=== PATIENT | female | born 1995 | race American Indian/Alaskan Native ===

== ENCOUNTER 2019-09-13 22:09 | Emergency (ER) | payer OTHER ==
[~2019-09-13] VITALS: Ht 172.7 cm; Wt 78.5 kg
--- OUTSIDE RECORDS SUMMARY | ~2019-09-13 | XMS | Clinical Summary ---
Demographics + + + | Address | [address] | | | [place] [address] | + + + | Home Phone | | + + + | Preferred Language | Unknown | + + + | Marital Status | Single | + + + | Latter-Day Affiliation | 1013 | + + + | Race | Unknown | + + + | Ethnic Group | Unknown | + + + Author + + + | Author | [facility] (Historical as of | | | 05-17-19) | + + + | Organization | [facility] (Historical as of | | | 05-17-19) | + + + | Address | Unknown | + + + | Phone | Unavailable | + + + Support + + +---------+ + | Name | Relationship | Address | Phone | + + +---------+ + | Charity Bradley | ECON | Unknown | | + + +---------+ + | Renée Perkins | ECON | Unknown | | + + +---------+ + Care Team Providers + +------+ + | Care Asp Net Software Developer Name | Role | Phone | + +------+ + | Jose Cruz Sánchez | PP | | + +------+ + Allergies No Known Allergies Current Medications + + + +---------+------+------+-------+ | Prescription | Sig. | Disp. | Refills | Star | End | Statu | | | | | | t | Date | s | | | | | | Date | | | + + + +---------+------+------+-------+ | MV-Min-Fe | Take by mouth. | | | | | Activ | | Fum-FA-DHA | | | | | | e | | ( 1 PO) | | | | | | | + + + +---------+------+------+-------+ | Breast Pump | Dispense and provide | 1 each | 0 | 07/2 | | Activ | | (medical representative) | instruction as | | | 2/20 | | e | | | needed. | | | 14 | | | + + + +---------+------+------+-------+ | bisacodyl | Take 2 tablets by | 30 | 0 | 07/2 | | Activ | | (DULCOLAX) 5 MG EC | mouth daily as | tablet | | 4/20 | | e | | tablet | needed for | | | 14 | | | | | Constipation. Take | | | | | | | | with 8 oz. water. | | | | | | + + + +---------+------+------+-------+ | ibuprofen (MOTRIN) | Take 1 tablet by | 30 | 0 | 07/2 | | Activ | | 800 MG tablet | mouth every 8 | tablet | | 4/20 | | e | | | (eight) hours as | | | 14 | | | | | needed for Pain. | | | | | | + + + +---------+------+------+-------+ | labetalol | Take 1 tablet by | 30 | 0 | 07/2 | | Activ | | (NORMODYNE) 100 MG | mouth 3 (three) | tablet | | 4/20 | | e | | tablet | times daily. | | | 14 | | | + + + +---------+------+------+-------+ Active Problems No known active problems Social History + +-------+ +--------+------+ | Tobacco Use | Types | Packs/Day | Years | Date | | | | | Used | | + +-------+ +--------+------+ | Never Smoker | | | | | + +-------+ +--------+------+ + + +---------+ + | Alcohol Use | Drinks/We | oz/Week | Comments | | | ek | | | + + +---------+ + | No | | | | + + +---------+ + + + + | Sex Assigned at | Date Recorded | | | | + + + | Not on file | | + + + Last Filed Vital Signs + + + + | Vital Sign | Reading | Time Taken | + + + + | Blood Pressure | 147/93 | 04/23/2014 1:50 PM PDT | + + + + | Pulse | 67 | 04/23/2014 1:50 PM PDT | + + + + | Temperature | 36.9 C (98.4 F) | 04/23/2014 1:50 PM PDT | + + + + | Respiratory Rate | 16 | 04/23/2014 1:50 PM PDT | + + + + | Oxygen Saturation | 99% | 04/20/2014 8:07 PM PDT | + + + + | Inhaled Oxygen | - | - | | Concentration | | | + + + + | Weight | 82.5 kg (181 lb 14.1 | 04/21/2014 9:51 AM PDT | | | oz) | | + + + + | Height | 170.2 cm (5' 7.01") | 04/20/2014 3:09 PM PDT | + + + + | Body Mass Index | 28.48 | 04/21/2014 9:51 AM PDT | + + + + Plan of Treatment Not on file Results Not on filefrom Last 3 Months Insurance + +--------+ +------+-------+ + | Payer | Benefi | Subscriber | Type | Phone | Address | | | t Plan | ID | | | | | | / | | | | | | | Group | | | | | + +--------+ +------+-------+ + | MEDICAID | [employer] | [id number] | | | [address] | | | N | | | | [place] | | | [place] | | | | [phone] | | | MAGAZINE DESIGNER | | | | | + +--------+ +------+-------+ + + +--------+ +--------+ + + | Guarantor Name | Accoun | Relation to | Date | Phone | Billing Address | | | t Type | Patient | of | | | | | | | | | | + +--------+ +--------+ + + | KEITH OLMOS | Person | Self [birth year] | Home: | [address] | | | [place] | | 1994 | [phone] | [place] [address] | | | [place] | | | [phone] | | + +--------+ +--------+ + +
--- OUTSIDE RECORDS SUMMARY | ~2019-09-13 | XMS | Clinical Summary ---
Demographics + + + | Address | [address] | | | [place] [address] | + + + | Home Phone | | + + + | Preferred Language | Unknown | + + + | Marital Status | Single | + + + | Rastafarian Affiliation | 1013 | + + + | Race | Unknown | + + + | Ethnic Group | Unknown | + + + Author + + + | Author | [facility] (Historical as of | | | 05-17-19) | + + + | Organization | [facility] (Historical as of | | | 05-17-19) [...] Team Providers + +------+ + | Care Personal Banking Advisor Name | Role | Phone | + [...] 07/2 | | Activ | | (medical affairs leader) | instruction as | | | 2/20 [...] +------+-------+ + | MEDICAID | [employer] | [id number] | | | [address] | | | N | | | | [place] | | | [place] | | | | [phone] | | | OPERATING MANAGER | | | | | + +--------+ [...] | Self | [birth year] | Home: | [address] | | | [place] | | 1994 | [phone] | [place] [address] | | | [place] | | | [phone] | | + +--------+ +--------+ + +
--- OUTSIDE RECORDS SUMMARY | ~2019-09-13 | XMS | Encounter Summary ---
Demographics + + + | Address | [address] | | | [place] [address] | + + + | Home Phone | | + + + | Preferred Language | Unknown | + + + | Marital Status | Single | + + + | Rastafarian Affiliation | [id number] | + + + | Race | Unknown | + + + | Ethnic Group | Unknown | + + + Author + + + | Author | [facility] | | | and [place] | + + + | Organization | [facility] | | | and [place] | + + + | Address | Unknown | + + + | Phone | Unavailable | + + + Support + + +---------+ + | Name | Relationship | Address | Phone | + + +---------+ + | Charity Bradley | ECON | Unknown | | + + +---------+ + Care Team Providers + +------+ + | Care Awnings Mechanic Name | Role | Phone | + +------+ + PCP | Unavailable | + +------+ + Encounter Details +--------+ + + + + | Date | Type | Department | Care Team | Description | +--------+ + + + + | 04/20/ | Hospital | [facility] | Azael Flores | | | 2013 - | Encounter | [facility] LABOR | MD ADA [address] | | | | | [address] | [place], [place] | | | 04/23/ | | [place] [place] | [address] | | | 2014 | | [place], [place] | [phone] | | | | | [address] | | | | | | [phone] | | | +--------+ + + + + Social History + +-------+ +--------+------+ | Tobacco Use | Types | Packs/Day | Years | Date | | | | | Used | | + +-------+ +--------+------+ | Never Assessed | | | | | + +-------+ +--------+------+ + + + | Sex Assigned at | Date Recorded | | | | + + + | Not on file | | + + + + + + + | Job Start Date | Occupation | Industry | + + + + | Not on file | Not on file | Not on file | + + + + + + + + | Travel History | Travel Start | Travel End | + + + + + + | No recent travel history available. | + + documented as of this encounter Discharge Summaries Azael Flores MD, MD - 04/23/2014 2:11 PM PDT Discharge Summaries by Azael Flores MD at 04/23/14 141 Author: Azael Flores MD Service: (none) Author Type: Physician Filed: 04/23/14 1427 Date of Service: 04/23/141410 Status: Signed Cloud Systems Architect: Azael Flores MD (Physician) [facility]: Obstetrics & Gynecology Discharge Summary Date of Admission: 04/20/2014 Date of Discharge: 04/23/2014 Discharge Provider: AZAEL FLORES MD Treatment Team: Admitting Provider: Azael Flores MD Discharge Diagnoses: Active Problems: * No active hospital problems. * Resolved Problems: * No resolved hospital problems. * Final Diagnoses: at 34 weeks 6 days Delivered Toxemia hypertensio n Procedures EFM Epidural anesthesia VAGINAL DELIVERY SINE OB COMPLICATIONS Significant Diagnostic Studies: Labs: ob labs , PIH PAnel BRIEF HISTORY OF PRESENTATION: Sandra Duvall is a 18 y.o. female who WAS TRANSPORTED VIA HELICOPTER FROM [facility] WITH DIAGNOSIS OF TOXEMIA , PROM AND PREMATURE LABOR , LABOR PROCEEDED TO COMPLETE DI LATATION AND VAGINAL DELIVERY . HOSPITAL COURSE: BENIGN UNEVENTFUL BOTH MOTHER AND DELIVERY DOING WELL , INFANT IS WELL IN NICU , TEODORA ASTFEEDING IS ESTABLISHED WITH THE ASSISTANCE OF AN ELECTRIC BREAST PUMP . History reviewed. No pertinent past medical history. History reviewed. No pertinent past surgical history. No Known Allergies Prescriptions prior to admission Medication Sig Dispense Refill MV-Min-Fe Fum-FA-DHA ( 1 PO) Take by mouth. DISCHARGE EXAM Vital Signs: BP 147/93 | Pulse 67 | Temp 98.4 F (36.9 C) (Oral) | Resp 16 | Ht 1.702 m (5' 7.01") | Wt 82.5 kg (181 lb 14.1 oz) | BMI 28.48 kg/m2 | SpO2 99% | ? Yes Temp: [98 F (36.7 C)-98.4 F (36.9 C)] 98.4 F (36.9 C) (04/23 1350) BP: (133-162)/(90-114) 147/93 mmHg (04/23 1350) Heart Rate: [67-82] 67 (04/23 1350) Resp: [16-18] 16 (04/23 1350) Physical Exam Nursing note and vitals reviewed. Constitutional: She appears well-developed and well-nourished. HENT: Head: Normocephalic and atraumatic. Eyes: EOM are normal. Pupils are equal, round, and reactive to light. Neck: Normal range of motion. Neck supple. Cardiovascular: Normal rate, regular rhythm and normal heart sounds. Pulmonary/Chest: Effort normal and breath sounds normal. Abdominal: Soft. Bowel sounds are normal. Genitourinary: Uterus normal. Musculoskeletal: Normal range of motion. Neurological: She is alert. She has normal reflexes. Skin: Skin is warm. Psychiatric: She has a normal mood and affect. Her behavior is normal. Judgment and thought content normal. DATA CBC: Lab Results Component Value Date WBC 11.2* 04/22/2014 RBC 3.25* 04/22/2014 HGB 10.0* 04/22/2014 HCT 29.9* 04/22/2014 MCV 92.2 04/22/2014 MCH 31.0 04/22/2014 MCHC 33.6 04/22/2014 RDW 44.2 04/22/2014 PLT 150 04/22/2014 MPV 11.2 04/22/2014 DIFFTYPE MANUAL 04/22/2014 WBC: Lab Results Component Value Date WBC 11.2* 04/22/2014 NEUTABSMAN 6.2 04/22/2014 NEUTROMAN 55 04/22/2014 LYMPHOABS 3.9 04/22/2014 LYMPHOMAN 35 04/22/2014 MONOABSMAN 0.8 04/22/2014 MONOMAN 7 04/22/2014 EOSINOABS 0.2 04/22/2014 EOSINOMAN 2 04/22/2014 BANDSPCT 1 04/22/2014 Platelets: Lab Results Component Value Date PLT 150 04/22/2014 PLAN NO ACTIVE PROBLEMS , TOXEMIA IN RESOLUTION. Disposition: Home Condition: Good Code Status: Full Code CONTINUE TAKING PNV AND LABETALOL PRESCRIBED Follow up: [facility] Schedule an appointment as soon as possible for a visit in 4 weeks Medication List As of 04/23/2014 2:11 PM START taking these medications bisacodyl 5 MG EC tablet QTY: 30 tablet Refills: 0 Commonly known as: DULCOLAX Take 2 tablets by mouth daily as needed for Constipation. Take with 8 oz. water. Breast Pump (medical coder) QTY: 1 each Refills: 0 Doctor's comments: Patient needs a double electric breast pump to help establish and maint ain milk supply for a premature in NICU and for engorgement. Dispense and provide instruction as needed. ibuprofen 800 MG tablet QTY: 30 tablet Refills: 0 Commonly known as: MOTRIN Take 1 tablet by mouth every 8 (eight) hours as needed for Pain. Where to get your medications These are the prescriptions that you need to filler picker. You may get these medications from any pharmacy. bisacodyl 5 MG EC tablet Breast Pump (medical coder) ibuprofen 800 MG tablet Discharge took 23 minutes, to include final examination, discussion of admission, and prep aration of prescriptions, instructions for on-going care, follow-up and documentation of dis charge summary. AZAEL FLORES MD 04/23/2014 documentrosa gale in this encounter Progress Notes Alex Guido MD - 04/22/2014 5:27 PM PDTFormatting of this note might be diffe rent from the original. Progress Notes by Alex Guido MD at 04/22/141726 Author: Alex Guido MD Service: Obstetrics/Gynecology Author Type: Physicia n Filed: 04/22/14 8945 Date of Service: 04/22/141726 Status: Signed Cloud Systems Architect: Alex Guido MD (Physician) [facility]: Obstetrics & Gynecology Progress Note Day: 2 SUBJECTIVE The patient feels well. Pain is well controlled with current medications. The patient is am bulating well. The patient is tolerating a normal diet. Urinary output is adequate. Flatus has been passed. The baby is in the NICU for prematurity. Patient is breast and bottle feed ing. Scheduled Medications docusate calcium 240 mg Oral Daily [] ibuprofen 600 mg Oral Q6H SARAH labetalol 20 mg Intravenous Once labetalol 100 mg Oral Q12H SARAH lactated ringers 500 mL Intravenous Once sodium chloride 0.9 % 10 mL Intravenous Q8H Continuous Infusions [] fentaNYL 3 mcg/mL-BUpivacaine 0.1% lactated ringers Stopped (04/21/142139) lactated ringers [] magnesium sulfate in LR 40g/1000mL Stopped (04/21/142139) PRN Medications acetaminophen, ntzdxduaac-uxbrref-sqgc vera, calcium gluconate, dibucaine, diphenhydrAMINE, [] diphenhydrAMINE, [] ephedrine, fentaNYL, fentaNYL, ibuprofen, lactated rin gers, lactated ringers, lactated ringers, lanolin, naloxone, oxyCODONE, oxyCODONE, simethico ne, sodium chloride, witch emily-glycerin, zolpidem OBJECTIVE Vital Signs: BP 134/96 | Pulse 67 | Temp 98.1 F (36.7 C) (Oral) | Resp 16 | Ht 1.702 m (5' 7.01") | Wt 82.5 kg (181 lb 14.1 oz) | BMI 28.48 kg/m2 | SpO2 99% | ? Yes General: alert, appears stated age and cooperative Bowel Sounds: active Uterine Fundus: firm @ -2 Neuro A+O x 3, + 2 reflexes, Lochia: appropriate Extremities: 2+ bilateral pedal edema DATA CBC: Lab Results Component Value Date WBC 11.2* 04/22/2014 RBC 3.25* 04/22/2014 HGB 10.0* 04/22/2014 HCT 29.9* 04/22/2014 MCV 92.2 04/22/2014 MCH 31.0 04/22/2014 MCHC 33.6 04/22/2014 RDW 44.2 04/22/2014 PLT 150 04/22/2014 MPV 11.2 04/22/2014 DIFFTYPE MANUAL 04/22/2014 PROBLEM LIST Active Problems: * No active hospital problems. * ASSESSMENT & PLAN Patient seen and evaluated V/S BP Mildly elevated on labetalol, Still suboptimal control Will keep for observation for another 24 hours before d/c Serial BP Status vaginal delivery. Doing well. Continue current care. ALEX GUIDO MD 04/22/2014 onversion T ransaction, Provider Unknown - 04/21/2014 5:15 PM PDTFormatting of this note might be diffe rent from the original. Case Management by ELISA Jaimes at 04/21/14 8471 Author: ELISA Jaimes Service: (none) Author Type: Assistant Store Manager Sales Filed: 04/21/141720 Date of Service: 04/21/141714 Status: Signed Cloud Systems Architect: ELISA Jaimes (Assistant Store Manager Sales) CM met with MOB in baby's room. MOB is Sandra Duvall and FOB is Mariano Bradley. Baby is Quique Bradley. Family live at [address] [place] [address]. Phone number is [phone]. Baby Quique, is gestational Age: 34 5/7 week male , birthweight: 1790 g born via norm al spontaneous vaginal delivery to a 20 year old G 1, P 0 admitted to the NICU for prematuri ty. MOB is pumping and has WIC in [place]. MOB will get pump from them. This is MOB's first baby. Maternal Great Grandma was with MOB was very excited and support bobby. This is MGGma 1st great grandbaby. Baby is going to be "very spoiled". CM will continue to follow family. CM encouraged MOB to contact CM if any needs prior to b alexandre's d/c. ELISA Jaimes Shannan Dallas MD - 04/21/2014 9:40 AM PDT Progress Notes by Shannan Cheney MD at 04/21/14939 Author: Shannan Cheney MD Service: Obstetrics/Gynecology Author Type: Physician Filed: 04/21/14 1136 Date of Service: 04/21/14939 Status: Signed Cloud Systems Architect: Shannan Cheney MD (Physician) [facility]: Obstetrics & Gynecology Progress Note Day: 1 SUBJECTIVE The patient feels well. Pain is well controlled with current medications. The patient is am bulating well. The patient is tolerating a normal diet. Urinary output is adequate. Flatus has been passed. The baby iswell. Patient is formula feeding. No CP/SOB/N/V//F/Cruq pain/blurry vision/dizziness. Scheduled Medications ampicillin 1 g Intravenous Q4H docusate calcium 240 mg Oral Daily [] fentaNYL ibuprofen 600 mg Oral Q6H SARAH [COMPLETED] labetalol 20 mg Intravenous Once labetalol 20 mg Intravenous Once lactated ringers 500 mL Intravenous Once [COMPLETED] misoprostol 600 mcg Rectal Once sodium chloride 0.9 % 10 mL Intravenous Q8H Continuous Infusions [] fentaNYL 3 mcg/mL-BUpivacaine 0.1% fentaNYL 3 mcg/mL-BUpivacaine 0.1% lactated ringers 50 mL/hr at 04/20/141910 lactated ringers magnesium sulfate in LR 40g/1000mL 1 g/hr (04/20/141948) magnesium sulfate in LR 40g/1000mL [DISCONTINUED] oxytocin 125 mL/hr (04/21/14 0000) [DISCONTINUED] oxytocin 4 sai-units/min (04/20/142032) PRN Medications acetaminophen, vqmfntxzgk-serabps-lbav vera, calcium gluconate, dibucaine, diphenhydrAMINE, diphenhydrAMINE, ephedrine, fentaNYL, fentaNYL, [START ON 04/22/2014] ibuprofen, lactated ri ngers, lactated ringers, lactated ringers, lanolin, naloxone, oxyCODONE, oxyCODONE, simethic one, sodium chloride, witch emily-glycerin, zolpidem, [DISCONTINUED] lidocaine, [DISCONTINUE D] oxytocin, [DISCONTINUED] povidone-iodine OBJECTIVE Vital Signs: BP 114/72 | Pulse 68 | Temp 97.7 F (36.5 C) (Axillary) | Resp 18 | Ht 1.702 m (5' 7.01" ) | Wt 82.4 kg (181 lb 10.5 oz) | BMI 28.45 kg/m2 | SpO2 99% | ? Yes Patient Vitals for the past 24 hrs: BP Temp Temp src Pulse Resp SpO2 Height Weight 04/21/14 0655 114/72 mmHg 97.7 F (36.5 C) Axillary 68 - - - - 04/21/14 0418 125/77 mmHg - - 66 - - - - 04/21/14 0413 115/76 mmHg - - 68 - - - - 04/21/14 0408 116/78 mmHg - - 68 - - - - 04/21/14 0403 113/76 mmHg - - 68 - - - - 04/21/14 0358 119/77 mmHg - - 70 - - - - 04/21/14 0350 146/103 mmHg - - 74 - - - - 04/21/14 0325 142/97 mmHg - - 72 - - - - 04/21/14 0255 146/97 mmHg - - 73 - - - - 04/21/14 0225 153/100 mmHg - - 76 - - - - 04/21/14 0155 137/82 mmHg - - 73 - - - - 04/21/14 0125 137/85 mmHg - - 76 - - - - 04/21/14 0053 149/75 mmHg - - 84 - - - - 04/21/14 0037 138/96 mmHg 98.1 F (36.7 C) Oral 89 18 - - - 04/21/14 0032 140/92 mmHg - - 82 - - - - 04/21/14 0027 137/91 mmHg - - 82 - - - - 04/21/14 0022 133/92 mmHg - - 81 - - - - 04/21/14 0017 135/95 mmHg - - 82 - - - - 04/21/14 0016 134/96 mmHg - - 79 - - - - 04/21/14 0012 142/104 mmHg - - 83 - - - - 04/21/14 0007 139/103 mmHg - - 82 - - - - 04/21/14 0002 141/102 mmHg - - 81 - - - - 04/20/14 2351 151/106 mmHg - - 84 - - - - 04/20/14 2333 149/107 mmHg - - 90 - - - - 04/20/14 2319 146/102 mmHg - - 96 - - - - 04/20/14 2304 142/97 mmHg - - 81 - - - - 04/20/149 146/98 mmHg - - 81 - - - - 04/20/144 146/100 mmHg - - 88 - - - - 04/20/148 140/95 mmHg - - 81 - - - - 04/20/140 146/105 mmHg - - 79 - - - - 04/20/145 136/98 mmHg - - 86 - - - - 04/20/140 136/93 mmHg - - 82 - - - - 04/20/14 2145 143/96 mmHg - - 82 - - - - 04/20/140 140/92 mmHg - - 83 - - - - 04/20/145 140/92 mmHg - - 83 - - - - 04/20/140 137/89 mmHg - - 83 18 - - - 04/20/142125 138/87 mmHg - - 81 - - - - 04/20/142114 150/97 mmHg - - 80 - - - - 04/20/140 147/108 mmHg - - 80 - - - - 04/20/145 145/101 mmHg - - 78 - - - - 04/20/14 2100 144/95 mmHg - - 81 - - - - 04/20/140 150/104 mmHg - - 85 - - - - 04/20/14 2030 144/102 mmHg - - 90 - - - - 04/20/142014 148/96 mmHg - - 90 - - - - 04/20/142009 - 98.1 F (36.7 C) - - 18 - - - 04/20/142006 - - - 85 - 99 % - - 04/20/142001 - - - 86 - 99 % - - 04/20/141999 149/94 mmHg - - 82 - - - - 04/20/141942 135/85 mmHg - - 88 - - - - 04/20/141941 - - - 81 - 100 % - - 04/20/141940 129/86 mmHg - - 82 - - - - 04/20/141938 130/88 mmHg - - 83 - - - - 04/20/141936 136/90 mmHg - - 82 - 98 % - - 04/20/141934 138/93 mmHg - - 85 - - - - 04/20/141932 140/91 mmHg - - 90 - - - - 04/20/141931 - - - 83 - 98 % - - 04/20/141930 140/90 mmHg - - 81 - - - - 04/20/149 133/81 mmHg - - 93 - - - - 04/20/14 1927 0/0 mmHg - - 85 - 99 % - - 04/20/14 1925 146/107 mmHg - - 87 - - - - 04/20/14 1922 151/102 mmHg - - 91 - 99 % - - 04/20/14 1906 162/108 mmHg - - 78 - - - - 04/20/14 190 - - - 89 - 98 % - - 04/20/14 1852 172/116 mmHg - - 85 - 99 % - - 04/20/14 1848 156/108 mmHg - - 81 - - - - 04/20/14 184 - 97.8 F (36.6 C) - - 18 - - 82.4 kg (181 lb 10.5 oz) 04/20/14 1842 - - - 78 - 98 % - - 04/20/14 1836 0/0 mmHg - - 78 - 98 % - - 04/20/14 1821 153/100 mmHg - - 80 - 98 % - - 04/20/14 1755 150/103 mmHg - - 81 - - - - 04/20/14 1754 0/0 mmHg - - - - - - - 04/20/14 1739 142/97 mmHg - - 81 - - - - 04/20/14 1724 139/93 mmHg - - 89 - - - - 04/20/14 1709 141/99 mmHg - - 86 - - - - 04/20/14 1701 145/90 mmHg - - 92 - - - - 04/20/14 1656 0/0 mmHg - - - - - - - 04/20/14 1654 0/0 mmHg - - - - - - - 04/20/14 1639 140/95 mmHg - - 87 - - - - 04/20/14 1624 135/90 mmHg - - 94 - - - - 04/20/14 1609 140/93 mmHg - - 85 - - - - 04/20/14 1554 0/0 mmHg - - 86 - - - - 04/20/14 1539 137/92 mmHg - - 86 - - - - 04/20/14 1524 0/0 mmHg - - 88 - - - - 04/20/14 1509 - 98 F (36.7 C) Oral - - - 1.702 m (5' 7.01") 82.101 kg (181 lb) 04/20/14 1502 139/93 mmHg - - 95 - - - - 04/20/14 1450 142/96 mmHg 98 F (36.7 C) Oral 95 18 - 1.702 m (5' 7") 82.101 kg (181 l b) General: alert, appears stated age and cooperative Heart: Regular rate and rhythm, S1 and S2 normal, no murmur, rub or gallop Lungs: Clear to auscultation bilaterally, respirations unlabored Bowel Sounds: active Uterine Fundus: firm @ 2 cm above umbilicus Lochia: appropriate Extremities: 1+ bilateral pedal edema, +2 reflexes. DATA CBC: Lab Results Component Value Date WBC 20.1* 04/21/2014 RBC 3.62* 04/21/2014 HGB 11.1* 04/21/2014 HCT 32.8* 04/21/2014 MCV 90.7 04/21/2014 MCH 30.7 04/21/2014 MCHC 33.9 04/21/2014 RDW 42.9 04/21/2014 PLT 152 04/21/2014 MPV 11.3 04/21/2014 CMP: Lab Results Component Value Date BUN 14 04/21/2014 CREATININE 0.95 04/21/2014 AST 26 04/21/2014 LDH: Lab Results Component Value Date LDH 251* 04/21/2014 Uric Acid: Lab Results Component Value Date URICACID 6.4 04/21/2014 ABO/RH(D) Date Value Range Status 04/20/2014 O POSITIVE Final , ANTIBODY SCREEN Date Value Range Status 04/20/2014 NEGATIVE Final , HEP B SURFACE AG Date Value Range Status 10/21/2013 Negative Final , TREP PALLIDUM BY EIA Date Value Range Status 10/21/2013 negative Final , RUBELLA Date Value Range Status 10/21/2013 immune Final and HIV1/HIV2 Date Value Range Status 10/21/2013 negative Final PROBLEM LIST Active Problems: * No active hospital problems. * ASSESSMENT & PLAN 18 yo s/p PPD#1 IOL for PPROM. Augmentation with pit. uncomplicated. Pt recovering uneventfully. Pain controlled, lochia moderate, meagan reg diet, ambulating. Mild preeclampsia. Labs reviewed. Pt asymptomatic. BPs in mild range. Occ diastolic above 1 00. Plan to add PO antihypertensive medication Labetalol 100 BID. Encouarged ambulation. Continue current care. If stable plan on DC home tomorrow. Baby in NICU. Shannan Cheney MD 04/21/2014 onversio n Transaction, Provider Unknown - 04/20/2014 11:04 PM PDTFormatting of this note might be di fferent from the original. Nurse Progress Note by Adina Martinez RN at 04/20/142303 Author: Adina Martinez RN Service: (none) Author Type: Registered Nurse Filed: 04/20/142303 Date of Service: 04/20/142303 Status: Signed Cloud Systems Architect: Adina Martinez RN (Registered Nurse) Pt. Report feeling perineal pressure with UC's onver gil Transaction, Provider Unknown - 04/20/2014 9:16 PM PDT Progress Notes by Adina Martinez RN at 04/20/142115 Author: Adina Martinez RN Service: (none) Author Type: Registered Nurse Filed: 04/20/142313 Date of Service: 04/20/142115 Status: Signed Cloud Systems Architect: Adina Martinez RN (Registered Nurse) viable male. Nuchal cord x3 noted. Moderate?heavy gush of port wine blood with small cl ots noted at delivery. Shannan Dallas MD - 04/20/2014 8:15 PM PDT Progress Notes by Shannan Cheney MD at 04/20/142014 Author: Shannan Cheney MD Service: Obstetrics/Gynecology Author Type: Physician Filed: 04/20/142307 Date of Service: 04/20/142014 Status: Signed Cloud Systems Architect: Shannan Cheney MD (Physician) [facility]: Obstetrics & Gynecology Labor Progress Note Hospital Day: LOS: 0 days SUBJECTIVE The patient is a 18 y.o. female at 34w5d admitted for induction of labor, PPROM. Pt transported [place]. Diagnosed with PPROM by Amnisure. Pt was also foud to be hypertensive. Pt has no complaints of CP/SOB/N/F/C/V/blurry vision/ruq pain. Scheduled Medications ampicillin 1 g Intravenous Q4H fentaNYL sodium chloride 0.9 % 10 mL Intravenous Q8H Continuous Infusions fentaNYL 3 mcg/mL-BUpivacaine 0.1% lactated ringers 50 mL/hr at 04/20/141910 magnesium sulfate in LR 40g/1000mL 1 g/hr (04/20/141948) magnesium sulfate in LR 40g/1000mL oxytocin oxytocin Stopped (04/20/141902) PRN Medications calcium gluconate, fentaNYL, fentaNYL, lactated ringers, lactated ringers, lidocaine, oxyto radhames, povidone-iodine OBJECTIVE Vital Signs: BP 149/94 | Pulse 85 | Temp 98.1 F (36.7 C) (Oral) | Resp 18 | Ht 1.702 m (5' 7.01") | Wt 82.4 kg (181 lb 10.5 oz) | BMI 28.45 kg/m2 | SpO2 99% | ? Yes General: alert, appears stated age and cooperative Fundal Height: size equals dates FHT: 135/mod/pos accels/ no decels TOCO: Cards: Lungs: Extremities: regular, every 3 minutes RRR no M R G CTA BL No RRW +1 edema, Cervical Exam: Vag D/C: Normal show *Dilation: 7 (7-8) *Effacement (%): 100 *Station: 0 Mchugh Score: Not Indicated DATA CBC: Lab Results Component Value Date WBC 19.8* 04/20/2014 RBC 4.46 04/20/2014 HGB 13.8 04/20/2014 HCT 40.3 04/20/2014 MCV 90.3 04/20/2014 MCH 30.9 04/20/2014 MCHC 34.2 04/20/2014 RDW 42.4 04/20/2014 PLT 226 04/20/2014 MPV 10.5 04/20/2014 CMP: Lab Results Component Value Date BUN 11 04/20/2014 CREATININE 0.82 04/20/2014 AST 33 04/20/2014 LDH: Lab Results Component Value Date LDH 253* 04/20/2014 Uric Acid: Lab Results Component Value Date URICACID 6.2 04/20/2014 PT/INR: No results found for this basename: PROTIME, INR PTT: No results found for this basename: APTT [APTT U/A: No results found for this basename: COLORU, CLARITYU, MEROPENEM, LEUKOCYTESUR, NITRITE, URO BILINOGEN, PROTEINUA, PHUR, BLOODU, KETONES, BILIRUBINUR, GLUCOSEU ABO/RH(D) Date Value Range Status 04/20/2014 O POSITIVE Final , ANTIBODY SCREEN Date Value Range Status 04/20/2014 NEGATIVE Final , HEP B SURFACE AG Date Value Range Status 10/21/2013 Negative Final , TREP PALLIDUM BY EIA Date Value Range Status 10/21/2013 negative Final , RUBELLA Date Value Range Status 10/21/2013 immune Final and HIV1/HIV2 Date Value Range Status 10/21/2013 negative Final PROBLEM LIST Active Problems: * No active hospital problems. * ASSESSMENT & PLAN 1. 18 yo 34+5 weeks PPROM: dx w Amnisure at OSH. Pt has been leaking since then. Betamethasone not indicated. On Ampicilin for GBS prophylaxis. On pitocin for augmentation. 2. Mild preeclampsia: Based on mild range BP. Few severe range BPS noted once pt was in sev ere labor pain. On mag sulfate for seizure prophylaxis. Pt has always been asymptomatic. Lab values reviewed. No significant abnormal values noted. IV labetalol given x1. 3. FHR cat 1. Fetus vertex by exam. Shannan Cheney MD 04/20/2014 onversio n Transaction, Provider Unknown - 04/20/2014 8:08 PM PDTFormatting of this note might be di fferent from the original. Progress Notes by Adina Martinez RN at 04/20/142007 Author: Adina Martinez RN Service: (none) Author Type: Registered Nurse Filed: 04/20/142007 Date of Service: 04/20/142007 Status: Signed Cloud Systems Architect: Adina Martinez RN (Registered Nurse) Dr. Cheney at bedside. Discuss POC with Pt. onver gil Transaction, Provider Unknown - 04/20/2014 7:58 PM PDT Nurse Progress Note by Adina Martinez RN at 04/20/141957 Author: Adina Martinez RN Service: (none) Author Type: Registered Nurse Filed: 04/20/141999 Date of Service: 04/20/141957 Status: Signed Cloud Systems Architect: Adina Martinez RN (Registered Nurse) FHR deceleration noted beginning 20-30 sec prior to UC peak, lasting 90 sec, ariana @ 120bpm with slow return to baseline FHR onver gil Transaction, Provider Unknown - 04/20/2014 7:20 PM PDT Progress Notes by Adina Martinez RN at 04/20/141919 Author: Adina Martinez RN Service: (none) Author Type: Registered Nurse Filed: 04/20/142004 Date of Service: 04/20/141919 Status: Signed Cloud Systems Architect: Adina Martinez RN (Registered Nurse) Pt. Sitting up on edge of bed for epidural placement. Difficulty tracing continuous FHR onver gil Transaction, Provider Unknown - 04/20/2014 6:20 PM PDT Progress Notes by Adina Martinez RN at 04/20/141819 Author: Adina Martinez RN Service: (none) Author Type: Registered Nurse Filed: 04/20/141953 Date of Service: 04/20/141819 Status: Signed Cloud Systems Architect: Adina Martinez RN (Registered Nurse) Pt. Transferred to [facility] via bed. docume nted in this encounter Plan of Treatment Not on filedocumented as of this encounter Procedures + +--------+ + + + | Procedure Name | Priori | Date/Time | Associated Diagnosis | Comments | | | ty | | | | + +--------+ + + + | CBC WITH MANUAL | Routin | 04/22/2014 | | Results for this | | DIFFERENTIAL | e | 4:20 AM | | procedure are in the | | | | PDT | | results section. | + +--------+ + + + | CBC NO DIFFERENTIAL | Routin | 04/21/2014 | | Results for this | | | e | 4:20 AM | | procedure are in the | | | | PDT | | results section. | + +--------+ + + + | URIC ACID | Routin | 04/21/2014 | | Results for this | | | e | 4:20 AM | | procedure are in the | | | | PDT | | results section. | + +--------+ + + + | BUN | Routin | 04/21/2014 | | Results for this | | | e | 4:20 AM | | procedure are in the | | | | PDT | | results section. | + +--------+ + + + | AST | Routin | 04/21/2014 | | Results for this | | | e | 4:20 AM | | procedure are in the | | | | PDT | | results section. | + +--------+ + + + | LACTATE | Routin | 04/21/2014 | | Results for this | | DEHYDROGENASE | e | 4:20 AM | | procedure are in the | | | | PDT | | results section. | + +--------+ + + + | CREATININE | Routin | 04/21/2014 | | Results for this | | | e | 4:20 AM | | procedure are in the | | | | PDT | | results section. | + +--------+ + + + | TISSUE REQUEST FOR | Routin | 04/21/2014 | | Results for this | | PATHOLOGY (NON-ORD) | e | 12:00 AM | | procedure are in the | | | | PDT | | results section. | + +--------+ + + + | CBC NO DIFFERENTIAL | Routin | 04/20/2014 | | Results for this | | | e | 3:35 PM | | procedure are in the | | | | PDT | | results section. | + +--------+ + + + | URIC ACID | Routin | 04/20/2014 | | Results for this | | | e | 3:35 PM | | procedure are in the | | | | PDT | | results section. | + +--------+ + + + | BUN | Routin | 04/20/2014 | | Results for this | | | e | 3:35 PM | | procedure are in the | | | | PDT | | results section. | + +--------+ + + + | AST | Routin | 04/20/2014 | | Results for this | | | e | 3:35 PM | | procedure are in the | | | | PDT | | results section. | + +--------+ + + + | MAGNESIUM | Routin | 04/20/2014 | | Results for this | | | e | 3:35 PM | | procedure are in the | | | | PDT | | results section. | + +--------+ + + + | LACTATE | Routin | 04/20/2014 | | Results for this | | DEHYDROGENASE | e | 3:35 PM | | procedure are in the | | | | PDT | | results section. | + +--------+ + + + | CREATININE | Routin | 04/20/2014 | | Results for this | | | e | 3:35 PM | | procedure are in the | | | | PDT | | results section. | + +--------+ + + + | HIV 1 AND 2 ANTIBODY | Routin | 10/21/2013 | | Results for this | | DIFFERENTIATION | e | 12:00 AM | | procedure are in the | | | | PST | | results section. | + +--------+ + + + | GC/CHLAM APTIMA | Routin | 10/21/2013 | | Results for this | | | e | 12:00 AM | | procedure are in the | | | | PST | | results section. | + +--------+ + + + | OBSTETRICS PANEL | Routin | 10/21/2013 | | Results for this | | | e | 12:00 AM | | procedure are in the | | | | PST | | results section. | + +--------+ + + + documented in this encounter Results CBC with Manual Differential (04/22/2014 4:20 AM PDT) + + + + + + | Component | Value | Ref Range | Performed | Pathologist | | | | | At | Signature | + + + + + + | WBC | 11.2 (H)Comment: Testing | 3.8 - 11.0 K/uL | EXTERNAL | | | | performed at [facility], [address] | | LAB | | | | [address], | | | | | | [place] [address] | | | | + + + + + + | RED CELL | 3.25 (L)Comment: Testing | 3.70 - 5.10 | EXTERNAL | | | COUNT | performed at [facility], [address] | M/uL | LAB | | | | [address], | | | | | | [place] [address] | | | | + + + + + + | Hgb | 10.0 (L)Comment: Testing | 11.3 - 15.5 | EXTERNAL | | | | performed at [facility], [address] | g/dL | LAB | | | | [address], | | | | | | [place] [address] | | | | + + + + + + | Hematocrit, | 29.9 (L)Comment: Testing | 34.0 - 46.0 % | EXTERNAL | | | POC | performed at [facility], [address] | | LAB | | | | [address], | | | | | | [place] [address] | | | | + + + + + + | MCV | 92.2Comment: Testing | 80.0 - 100.0 fl | EXTERNAL | | | | performed at [facility], [address] | | LAB | | | | [address], | | | | | | [place] [address] | | | | + + + + + + | MCH | 31.0Comment: Testing | 27.0 - 34.0 pg | EXTERNAL | | | | performed at [facility], [address] | | LAB | | | | [address], | | | | | | [place] [address] | | | | + + + + + + | MCHC | 33.6Comment: Testing | 32.0 - 35.5 | EXTERNAL | | | | performed at [facility], [address] | g/dL | LAB | | | | [address], | | | | | | [place] [address] | | | | + + + + + + | RDW-CV | 44.2Comment: Testing | 37 - 53 fl | EXTERNAL | | | | performed at [facility], [address] | | LAB | | | | [address], | | | | | | [place] [address] | | | | + + + + + + | Platelet | 150Comment: Testing | 150 - 400 K/uL | EXTERNAL | | | Count | performed at [facility], [address] | | LAB | | | Plasma | [address], | | | | | | [place] [address] | | | | + + + + + + | MPV | 11.2Comment: Testing | fl | EXTERNAL | | | | performed at [facility], [address] | | LAB | | | | [address], | | | | | | [place] [address] | | | | + + + + + + | Differentia | MANUALComment: Testing | | EXTERNAL | | | l Type | performed at [facility], [address] | | LAB | | | | [address], | | | | | | [place] [address] | | | | + + + + + + | Segmented | 55Comment: Testing | % | EXTERNAL | | | Neutrophils | performed at [facility], [address] | | LAB | | | Manual | [address], | | | | | | [place] [address] | | | | + + + + + + | % Bands | 1Comment: Testing | % | EXTERNAL | | | | performed at [facility], [address] | | LAB | | | | [address], | | | | | | [place] [address] | | | | + + + + + + | Lymphocytes | 35Comment: Testing | % | EXTERNAL | | | Manual | performed at [facility], [address] | | LAB | | | | [address], | | | | | | [place] [address] | | | | + + + + + + | Monocytes | 7Comment: Testing | % | EXTERNAL | | | Manual | performed at [facility], [address] | | LAB | | | | [address], | | | | | | [place] [address] | | | | + + + + + + | Eosinophils | 2Comment: Testing | % | EXTERNAL | | | Manual | performed at [facility], [address] | | LAB | | | | [address], | | | | | | [place] [address] | | | | + + + + + + | Absolute | 6.2Comment: Testing | 1.9 - 7.4 K/uL | EXTERNAL | | | Neutrophils | performed at [facility], [address] | | LAB | | | | [address], | | | | | | [place] [address] | | | | + + + + + + | Bands | 0.1Comment: Testing | 0 - 0.2 K/uL | EXTERNAL | | | Manual | performed at [facility], [address] | | LAB | | | | [address], | | | | | | [place] [address] | | | | + + + + + + | Absolute | 3.9Comment: Testing | 1.0 - 3.9 K/uL | EXTERNAL | | | Lymphocytes | performed at [facility], [address] | | LAB | | | | [address], | | | | | | [place] [address] | | | | + + + + + + | Absolute | 0.8Comment: Testing | 0 - 0.8 K/uL | EXTERNAL | | | Monocytes | performed at [facility], [address] | | LAB | | | | [address], | | | | | | [place] [address] | | | | + + + + + + | Absolute | 0.2Comment: Testing | 0 - 0.5 K/uL | EXTERNAL | | | Eosinophils | performed at [facility], [address] | | LAB | | | | [facility], | | | | | | [place] [address] | | | | + + + + + + | RBC | RBC AND PLT MORPHOLOGY | | EXTERNAL | | | Morphology | APPEAR NORMALComment: | | LAB | | | | Testing performed at | | | | | | [facility], [address] | | | | | | [place] | | | | | | [address] | | | | + + + + + + + + | Specimen | + + | Blood specimen | | (specimen) | + + + +---------+ + + | Performing | Address | City/State/Zipcode | Phone Number | | Organization | | | | + +---------+ + + | EXTERNAL LAB | | | | + +---------+ + + CBC no Differential (04/21/2014 4:20 AM PDT) + + + + + + | Component | Value | Ref Range | Performed | Pathologist | | | | | At | Signature | + + + + + + | WBC | 20.1 (H)Comment: Testing | 3.8 - 11.0 K/uL | EXTERNAL | | | | performed at [facility], [address] | | LAB | | | | [address], | | | | | | [place] [address] | | | | + + + + + + | RED CELL | 3.62 (L)Comment: Testing | 3.70 - 5.10 | EXTERNAL | | | COUNT | performed at [facility], [address] | M/uL | LAB | | | | [address], | | | | | | [place] [address] | | | | + + + + + + | Hgb | 11.1 (L)Comment: Testing | 11.3 - 15.5 | EXTERNAL | | | | performed at [facility], [address] | g/dL | LAB | | | | [address], | | | | | | [place] [address] | | | | + + + + + + | Hematocrit, | 32.8 (L)Comment: Testing | 34.0 - 46.0 % | EXTERNAL | | | POC | performed at [facility], [address] | | LAB | | | | [address], | | | | | | [place] [address] | | | | + + + + + + | MCV | 90.7Comment: Testing | 80.0 - 100.0 fl | EXTERNAL | | | | performed at [facility], [address] | | LAB | | | | [address], | | | | | | [place] [address] | | | | + + + + + + | MCH | 30.7Comment: Testing | 27.0 - 34.0 pg | EXTERNAL | | | | performed at [facility], [address] | | LAB | | | | [address], | | | | | | [place] [address] | | | | + + + + + + | MCHC | 33.9Comment: Testing | 32.0 - 35.5 | EXTERNAL | | | | performed at [facility], [address] | g/dL | LAB | | | | [address], | | | | | | [place] [address] | | | | + + + + + + | RDW-CV | 42.9Comment: Testing | 37 - 53 fl | EXTERNAL | | | | performed at [facility], [address] | | LAB | | | | [address], | | | | | | [place] [address] | | | | + + + + + + | Platelet | 152Comment: Testing | 150 - 400 K/uL | EXTERNAL | | | Count | performed at [facility], [address] | | LAB | | | Plasma | [address], | | | | | | [place] [address] | | | | + + + + + + | MPV | 11.3Comment: Testing | fl | EXTERNAL | | | | performed at [facility], [address] | | LAB | | | | [address], | | | | | | [place] [address] | | | | + + + + + + + + | Specimen | + + | | + + + +---------+ + + | Performing | Address | City/State/Zipcode | Phone Number | | Organization | | | | + +---------+ + + | EXTERNAL LAB | | | | + +---------+ + + Uric Acid (04/21/2014 4:20 AM PDT) + + + + + + | Component | Value | Ref Range | Performed | Pathologist | | | | | At | Signature | + + + + + + | Uric Acid | 6.4Comment: Testing | 2.2 - 7.1 mg/dL | EXTERNAL | | | | performed at [facility], [address] | | LAB | | | | [address], | | | | | | [place] [address] | | | | + + + + + + + + | Specimen | + + | Blood specimen | | (specimen) | + + + +---------+ + + | Performing | Address | City/State/Zipcode | Phone Number | | Organization | | | | + +---------+ + + | EXTERNAL LAB | | | | + +---------+ + + BUN (04/21/2014 4:20 AM PDT) + + + + + + | Component | Value | Ref Range | Performed | Pathologist | | | | | At | Signature | + + + + + + | BUN | 14Comment: Testing | 8 - 25 mg/dL | EXTERNAL | | | | performed at [facility], [address] | | LAB | | | | [address], | | | | | | [place] [address] | | | | + + + + + + + + | Specimen | + + | Blood specimen | | (specimen) | + + + +---------+ + + | Performing | Address | City/State/Zipcode | Phone Number | | Organization | | | | + +---------+ + + | EXTERNAL LAB | | | | + +---------+ + + AST (04/21/2014 4:20 AM PDT) + + + + + + | Component | Value | Ref Range | Performed | Pathologist | | | | | At | Signature | + + + + + + | AST | 26Comment: Testing | 10 - 45 U/L | EXTERNAL | | | | performed at [facility], [address] | | LAB | | | | [address], | | | | | | [place] [address] | | | | + + + + + + + + | Specimen | + + | Blood specimen | | (specimen) | + + + +---------+ + + | Performing | Address | City/State/Zipcode | Phone Number | | Organization | | | | + +---------+ + + | EXTERNAL LAB | | | | + +---------+ + + Lactate Dehydrogenase (04/21/2014 4:20 AM PDT) + + + + + + | Component | Value | Ref Range | Performed | Pathologist | | | | | At | Signature | + + + + + + | LDH TOTAL | 251 (H)Comment: Testing | 115 - 225 U/L | EXTERNAL | | | | performed at [facility], [address] | | LAB | | | | [address], | | | | | | [place] [address] | | | | + + + + + + + + | Specimen | + + | Blood specimen | | (specimen) | + + + +---------+ + + | Performing | Address | City/State/Zipcode | Phone Number | | Organization | | | | + +---------+ + + | EXTERNAL LAB | | | | + +---------+ + + Creatinine (04/21/2014 4:20 AM PDT) + + + + + + | Component | Value | Ref Range | Performed | Pathologist | | | | | At | Signature | + + + + + + | Creatinine | 0.95Comment: Testing | 0.50 - 1.00 | EXTERNAL | | | | performed at [facility], [address] | mg/dL | LAB | | | | [address], | | | | | | [place] [address] | | | | + + + + + + + + | Specimen | + + | Blood specimen | | (specimen) | + + + +---------+ + + | Performing | Address | City/State/Zipcode | Phone Number | | Organization | | | | + +---------+ + + | EXTERNAL LAB | | | | + +---------+ + + Tissue Request For Pathology (04/21/2014 12:00 AM PDT) + + | Specimen | + + | Soft tissue sample | | (specimen) | + + + + + | Narrative | Performed At | + + + | SPECIMEN(S): A PLACENTA - MICRO 3T SPECIMEN SOURCE: A. PLACENTA | EXTERNAL LAB | | - MICRO 3T CLINICAL HISTORY: 04/20/2014 at [address] H. Mother's Age: | | | 20. OB History: G 1. P: 1. A: __ (spont/elect). | | | Gestation Age: 34 +5. 's Weight: 1790 grams. | | | Score: 9/9. Rh: O+ (Rhogam yes/no). Rubella: imm. RPR: | | | n/r. Specific issues of concern: PPROM, mild preeclampsia. | | | FINAL PATHOLOGIC DIAGNOSIS: Placenta (232 grams), umbilical cord and | | | membranes. - Placental weight: approximately 3rd percentile | | | for gestational age. - Chorionic villi with - Appropriate | | | maturation for gestational age - No significant villous | | | infarction identified - Succenturiate lobe - No evidence of | | | trophoblastic disease - Three vessel umbilical cord without | | | pathologic abnormality. - membranes with focal | | | chorioamnionitis. GROSS DESCRIPTION: One specimen is received in one | | | container, labeled with the patient's name: A. Received | | | designated "placenta and cord" consists of a 16.0 x 13.5 x 1.8 cm with | | | an attached succenturiate lobe that is 5.0 x 3.5 x 0.5 cm. The 24.5 x | | | 0.9 cm umbilical cord inserts 4 cm from the nearest placental margin; | | | it shows the usual spiraling. Cut sections through the cord reveal | | | three vessels. Separate within the container is one section of | | | unattached umbilical cord that is 12.0 x 0.8 cm. In accordance to | | | protocol, approximately 18.0 cm of umbilical cord is retained by the | | | Center for possible future studies. The placental membranes | | | are translucent and wrinkled with adherent blood clot. The | | | surfaces are blue-purple and shiny with the usual radiating | | | vasculature. The maternal surface is peacock-brown and spongy with | | | well-defined cotyledons appearing intact. The trimmed placenta | | | weighs 232 grams. Cut sections reveal a deep maroon placenta | | | parenchyma. Basal plate fibrin is of normal thickness. No areas of | | | infarction are grossly identified. Cassette summary: (A1) umbilical | | | cord and membranes; (A2) [placenta parenchyma]; (A3) placenta | | | parenchyma. FM MICROSCOPIC EXAMINATION: Histologic sections of all | | | submitted blocks are examined by light microscopy. These findings, | | | together with the gross examination, support the pathologic diagnosis. | | | PERFORMING LABORATORY: Professional interpretation and technical | | | preparation was performed by [employer], [facility] | | | [address] [address] ([employer]: | | | Carlos Alberto Roach M.D.; [place]#: [id number]). Diagnostician: Wood Cho | | | King ADA Pathologist Electronically Signed 04/24/2014 | | + + + + +---------+ + + | Performing | Address | City/State/Zipcode | Phone Number | | Organization | | | | + +---------+ + + | EXTERNAL LAB | | | | + +---------+ + + CBC no Differential (04/20/2014 3:35 PM PDT) + + + + + + | Component | Value | Ref Range | Performed | Pathologist | | | | | At | Signature | + + + + + + | WBC | 19.8 (H)Comment: Testing | 3.8 - 11.0 K/uL | EXTERNAL | | | | performed at [facility] | | LAB | | | | [address];[place] | | | | | | [address] | | | | + + + + + + | RED CELL | 4.46Comment: Testing | 3.70 - 5.10 | EXTERNAL | | | COUNT | performed at [facility];[address] | M/uL | LAB | | | | [address];[place] | | | | | | [address] | | | | + + + + + + | Hgb | 13.8Comment: Testing | 11.3 - 15.5 | EXTERNAL | | | | performed at [facility];[address] | g/dL | LAB | | | | [address];[place] | | | | | | [address] | | | | + + + + + + | Hematocrit, | 40.3Comment: Testing | 34.0 - 46.0 % | EXTERNAL | | | POC | performed at [facility];[address] | | LAB | | | | [address];[place] | | | | | | [address] | | | | + + + + + + | MCV | 90.3Comment: Testing | 80.0 - 100.0 fl | EXTERNAL | | | | performed at [facility];[address] | | LAB | | | | [address];[place] | | | | | | [address] | | | | + + + + + + | MCH | 30.9Comment: Testing | 27.0 - 34.0 pg | EXTERNAL | | | | performed at [facility];[address] | | LAB | | | | [address];[place] | | | | | | [address] | | | | + + + + + + | MCHC | 34.2Comment: Testing | 32.0 - 35.5 | EXTERNAL | | | | performed at [facility];[address] | g/dL | LAB | | | | [address];[place] | | | | | | [address] | | | | + + + + + + | RDW-CV | 42.4Comment: Testing | 37 - 53 fl | EXTERNAL | | | | performed at [facility];[address] | | LAB | | | | [address];[place] | | | | | | [address] | | | | + + + + + + | Platelet | 226Comment: Testing | 150 - 400 K/uL | EXTERNAL | | | Count | performed at [facility];[address] | | LAB | | | Plasma | [address];[place] | | | | | | [address] | | | | + + + + + + | MPV | 10.5Comment: Testing | fl | EXTERNAL | | | | performed at [facility];[address] | | LAB | | | | [address];[place] | | | | | | [address] | | | | + + + + + + + + | Specimen | + + | | + + + +---------+ + + | Performing | Address | City/State/Zipcode | Phone Number | | Organization | | | | + +---------+ + + | EXTERNAL LAB | | | | + +---------+ + + Uric Acid (04/20/2014 3:35 PM PDT) + + + + + + | Component | Value | Ref Range | Performed | Pathologist | | | | | At | Signature | + + + + + + | Uric Acid | 6.2Comment: Testing | 2.2 - 7.1 mg/dL | EXTERNAL | | | | performed at [facility];[address] | | LAB | | | | [address];[place] | | | | | | [address] | | | | + + + + + + + + | Specimen | + + | Blood specimen | | (specimen) | + + + +---------+ + + | Performing | Address | City/State/Zipcode | Phone Number | | Organization | | | | + +---------+ + + | EXTERNAL LAB | | | | + +---------+ + + BUN (04/20/2014 3:35 PM PDT) + + + + + + | Component | Value | Ref Range | Performed | Pathologist | | | | | At | Signature | + + + + + + | BUN | 11Comment: Testing | 8 - 25 mg/dL | EXTERNAL | | | | performed at [facility];[address] | | LAB | | | | [address];[place], [place] | | | | | | [address] | | | | + + + + + + + + | Specimen | + + | Blood specimen | | (specimen) | + + + +---------+ + + | Performing | Address | City/State/Zipcode | Phone Number | | Organization | | | | + +---------+ + + | EXTERNAL LAB | | | | + +---------+ + + AST (04/20/2014 3:35 PM PDT) + + + + + + | Component | Value | Ref Range | Performed | Pathologist | | | | | At | Signature | + + + + + + | AST | 33Comment: Testing | 10 - 45 U/L | EXTERNAL | | | | performed at [facility];[address] | | LAB | | | | [address];[place] | | | | | | [address] | | | | + + + + + + + + | Specimen | + + | Blood specimen | | (specimen) | + + + +---------+ + + | Performing | Address | City/State/Zipcode | Phone Number | | Organization | | | | + +---------+ + + | EXTERNAL LAB | | | | + +---------+ + + Magnesium (04/20/2014 3:35 PM PDT) + + + + + + | Component | Value | Ref Range | Performed | Pathologist | | | | | At | Signature | + + + + + + | Magnesium | 7.4 ()Comment: CALLED | 1.7 - 2.4 mg/dL | EXTERNAL | | | | NURSING [facility] | | LAB | | | | U AT [address] READ BACK | | | | | | RESULTS VERIFIEDTesting | | | | | | performed at [facility] | | | | | | [facility];[place], [place] | | | | | | [address] | | | | + + + + + + + + | Specimen | + + | Blood specimen | | (specimen) | + + + +---------+ + + | Performing | Address | City/State/Zipcode | Phone Number | | Organization | | | | + +---------+ + + | EXTERNAL LAB | | | | + +---------+ + + Lactate Dehydrogenase (04/20/2014 3:35 PM PDT) + + + + + + | Component | Value | Ref Range | Performed | Pathologist | | | | | At | Signature | + + + + + + | LDH TOTAL | 253 (H)Comment: Testing | 115 - 225 U/L | EXTERNAL | | | | performed at [facility];[address] | | LAB | | | | [address];[place] | | | | | | [address] | | | | + + + + + + + + | Specimen | + + | Blood specimen | | (specimen) | + + + +---------+ + + | Performing | Address | City/State/Zipcode | Phone Number | | Organization | | | | + +---------+ + + | EXTERNAL LAB | | | | + +---------+ + + Creatinine (04/20/2014 3:35 PM PDT) + + + + + + | Component | Value | Ref Range | Performed | Pathologist | | | | | At | Signature | + + + + + + | Creatinine | 0.82Comment: Testing | 0.50 - 1.00 | EXTERNAL | | | | performed at [facility];[address] | mg/dL | LAB | | | | [address];[place], [place] | | | | | | [address] | | | | + + + + + + + + | Specimen | + + | Blood specimen | | (specimen) | + + + +---------+ + + | Performing | Address | City/State/Zipcode | Phone Number | | Organization | | | | + +---------+ + + | EXTERNAL LAB | | | | + +---------+ + + GC/Chlam Rickiima (10/21/2013 12:00 AM PST) + + + + + + | Component | Value | Ref Range | Performed | Pathologist | | | | | At | Signature | + + + + + + | Source | | | EXTERNAL | | | | | | LAB | | + + + + + + | Chlamydia | negative | | EXTERNAL | | | Trachomatis | | | LAB | | | Naat | | | | | + + + + + + | Result | negative | | EXTERNAL | | | | | | LAB | | + + + + + + + + | Specimen | + + | | + + + +---------+ + + | Performing | Address | City/State/Zipcode | Phone Number | | Organization | | | | + +---------+ + + | EXTERNAL LAB | | | | + +---------+ + + Obstetrics Panel (10/21/2013 12:00 AM PST) + + + + + + | Component | Value | Ref Range | Performed | Pathologist | | | | | At | Signature | + + + + + + | ABORH | o pos | | EXTERNAL | | | EXTERNAL | | | LAB | | + + + + + + | Antibody | negative | | EXTERNAL | | | Screen | | | LAB | | + + + + + + | WBC | | 10 | EXTERNAL | | | | | | LAB | | + + + + + + | RED CELL | | 10 | EXTERNAL | | | COUNT | | | LAB | | + + + + + + | Hgb | | g/dL | EXTERNAL | | | | | | LAB | | + + + + + + | Hematocrit, | | % | EXTERNAL | | | POC | | | LAB | | + + + + + + | MCV | | fL | EXTERNAL | | | | | | LAB | | + + + + + + | MCH | | pg | EXTERNAL | | | | | | LAB | | + + + + + + | MCHC | | g/dL | EXTERNAL | | | | | | LAB | | + + + + + + | Platelet | | K/ L | EXTERNAL | | | Count | | | LAB | | | Plasma | | | | | + + + + + + | MPV | | fL | EXTERNAL | | | | | | LAB | | + + + + + + | Differentia | | | EXTERNAL | | | l Type | | | LAB | | + + + + + + | % Segmented | | % | EXTERNAL | | | | | | LAB | | | Neutrophils | | | | | + + + + + + | % | | % | EXTERNAL | | | Lymphocytes | | | LAB | | + + + + + + | % Monocytes | | % | EXTERNAL | | | | | | LAB | | + + + + + + | % | | % | EXTERNAL | | | Eosinophils | | | LAB | | + + + + + + | % Basophils | | % | EXTERNAL | | | | | | LAB | | + + + + + + | Absolute | | / L | EXTERNAL | | | Segmented | | | LAB | | | Neutrophils | | | | | + + + + + + | Absolute | | / L | EXTERNAL | | | Lymphocytes | | | LAB | | + + + + + + | Absolute | | / L | EXTERNAL | | | Monocytes | | | LAB | | + + + + + + | Absolute | | / L | EXTERNAL | | | Eosinophils | | | LAB | | + + + + + + | Absolute | | / L | EXTERNAL | | | Basophils | | | LAB | | + + + + + + | Rubella IgG | immune | | EXTERNAL | | | Ab, Screen | | | LAB | | + + + + + + | Treponema | negative | | EXTERNAL | | | Pallidum Ab | | | LAB | | | Total | | | | | + + + + + + | Hepatitis B | Negative | | EXTERNAL | | | Surface Ag | | | LAB | | + + + + + + + + | Specimen | + + | Blood specimen | | (specimen) | + + + +---------+ + + | Performing | Address | City/State/Zipcode | Phone Number | | Organization | | | | + +---------+ + + | EXTERNAL LAB | | | | + +---------+ + + HIV 1 and 2 Antibody Differentiation (10/21/2013 12:00 AM PST) + + + + + + | Component | Value | Ref Range | Performed | Pathologist | | | | | At | Signature | + + + + + + | HIV 1 and 2 | negative | | EXTERNAL | | | Ab | | | LAB | | + + + + + + + + | Specimen | + + | Blood specimen | | (specimen) | + + + +---------+ + + | Performing | Address | City/State/Zipcode | Phone Number | | Organization | | | | + +---------+ + + | EXTERNAL LAB | | | | + +---------+ + + documented in this encounter Visit [facility] Not on filedocumented in this encounter
--- OUTSIDE RECORDS SUMMARY | ~2019-09-13 | XMS | Encounter Summary ---
Demographics + + + | Address | [address] | | | [place] [address] | + + + | Home Phone | | + + + | Preferred Language | Unknown | + + + | Marital Status | Single | + + + | Uatsdin Affiliation | 1013 | + + + | Race | Unknown | + + + | Ethnic Group | Unknown | + + + Author + + + | Author | [facility] | | | and [place] | + + + | Organization | [facility] | | | and Maxana [...] Team Providers + +------+ + | Care Maintenance Analyst Name | Role | Phone | + +------+ + PCP | Unavailable | + +------+ + Encounter Details +--------+ + + + + | Date | Type | Department | Care Team | Description | +--------+ + + + + | 04/20/ | Hospital | [facility] | Azael Flores | | | 2013 - | Encounter | [facility] | MD ADA [address] | | | | | AND DELIV[address] | [place], [place] | | | 04/23/ | | [place] [place] | [address] | | | 2014 | | [place], [place] | [phone] | | | | | [address] | | | | | | [phone] | | | +--------+ + + + [...] 1427 Date of Service: 04/23/141410 Status: Signed Card Doffer: Azael Flores MD (Physician) [facility] Service: Obstetrics & Gynecology Discharge Summary Date [...] female who WAS TRANSPORTED VIA HELICOPTER FROM [facility] WITH DIAGNOSIS OF TOXEMIA , PROM AND [...] TAKING PNV AND LABETALOL PRESCRIBED Follow up: [facility] Schedule an appointment as soon as possible for a visit in 4 weeks Medication List As of 04/23/2014 2:11 PM START taking these medications bisacodyl 5 MG EC tablet QTY: 30 tablet Refills: 0 Commonly known as: DULCOLAX Take 2 tablets by mouth daily as needed for Constipation. Take with 8 oz. water. Breast Pump (medical technologist) QTY: 1 each Refills: 0 Doctor's comments: [...] are the prescriptions that you need to pickling operator. You may get these medications from any pharmacy. bisacodyl 5 MG EC tablet Breast Pump (medical technologist) ibuprofen 800 MG tablet Discharge took 23 [...] Obstetrics/Gynecology Author Type: Physicia n Filed: 04/22/14 7587 Date of Service: 04/22/141726 Status: Signed Card Doffer: Alex Guido MD (Physician) [facility] Service: Obstetrics & Gynecology Progress Note Day: [...] LR 40g/1000mL Stopped (04/21/142139) PRN Medications acetaminophen, fwtugwfarc-dlqhfqa-beiy vera, calcium gluconate, dibucaine, diphenhydrAMINE, [] diphenhydrAMINE, [...] delivery. Doing well. Continue current care. ALEX UGIDO MD 04/22/2014 onversion T ransaction, Provider Unknown - 04/21/2014 5:15 PM PDTFormatting of this note might be diffe rent from the original. Case Management by ELISA Jaimes at 04/21/14 4268 Author: ELISA Jaimes Service: (none) Author Type: Therapeutic Consultant Filed: 04/21/141720 Date of Service: 04/21/141714 Status: Signed Card Doffer: ELISA Jaimes (Therapeutic Consultant) CM met with MOB in baby's room. MOB is Sandra Duvall and FOB is Mariano Bradley. Baby is Quique Bradley. Family live at [address] [place] [address]. Phone number is [phone]. Baby Quique, is gestational Age: 34 5/7 week male , birthweight: 1790 g born via norm al spontaneous vaginal delivery to a 18 year old G 1, P 0 admitted to the NICU for prematuri ty. MOB is pumping and has WIC in [place]. MOB will get pump from them. This [...] 1136 Date of Service: 04/21/14939 Status: Signed Card Doffer: Shannan Cheney MD (Physician) [facility] Service: Obstetrics & Gynecology Progress Note Day: [...] oxytocin 4 sai-units/min (04/20/142032) PRN Medications acetaminophen, ebghcqoxmi-bmmbrzx-mudr vera, calcium gluconate, dibucaine, diphenhydrAMINE, diphenhydrAMINE, ephedrine, [...] 04/20/142303 Date of Service: 04/20/142303 Status: Signed Card Doffer: Adina Martinez RN (Registered Nurse) Pt. Report feeling perineal pressure with UC's onver gil Transaction, Provider Unknown - 04/20/2014 9:16 PM PDT Progress Notes by Adina Martinez RN at 04/20/142115 Author: Adina Martinez RN Service: (none) Author Type: Registered Nurse Filed: 04/20/142313 Date of Service: 04/20/142115 Status: Signed Card Doffer: Adina Martinez RN (Registered Nurse) viable male. Nuchal cord x3 noted. Moderate?heavy gush of port wine blood with small cl ots noted at delivery. Shannan Dallas MD - 04/20/2014 8:15 PM PDT Progress Notes by Shannan Cheney MD at 04/20/142014 Author: Shannan Cheney MD Service: Obstetrics/Gynecology Author Type: Physician Filed: 04/20/142307 Date of Service: 04/20/142014 Status: Signed Card Doffer: Shannan Cheney MD (Physician) [facility] Service: Obstetrics & Gynecology Labor Progress Note Hospital Day: LOS: 0 days SUBJECTIVE The patient is a 18 y.o. female at 34w5d admitted for induction of labor, PPROM. Pt transported [place]. Diagnosed with PPROM by [facility]. Pt [...] 04/20/142007 Date of Service: 04/20/142007 Status: Signed Card Doffer: Adina Martinez RN (Registered Nurse) Dr. Cheney at bedside. Discuss POC with Pt. onver gil Transaction, Provider Unknown - 04/20/2014 7:58 PM PDT Nurse Progress Note by Adina Martinez RN at 04/20/141957 Author: Adina Martinez RN Service: (none) Author Type: Registered Nurse Filed: 04/20/141999 Date of Service: 04/20/141957 Status: Signed Card Doffer: Adina Martinez RN (Registered Nurse) FHR deceleration noted beginning 20-30 sec prior to UC peak, lasting 90 sec, ariana @ 120bpm with slow return to baseline FHR onver gil Transaction, Provider Unknown - 04/20/2014 7:20 PM PDT Progress Notes by Adina Martinez RN at 04/20/141919 Author: Adina Martinez RN Service: (none) Author Type: Registered Nurse Filed: 04/20/142004 Date of Service: 04/20/141919 Status: Signed Card Doffer: Adina Martinez RN (Registered Nurse) Pt. Sitting up on edge of bed for epidural placement. Difficulty tracing continuous FHR onver gil Transaction, Provider Unknown - 04/20/2014 6:20 PM PDT Progress Notes by Adina Martinez RN at 04/20/141819 Author: Adina Martinez RN Service: (none) Author Type: Registered Nurse Filed: 04/20/141953 Date of Service: 04/20/141819 Status: Signed Card Doffer: Adina Martinez RN (Registered Nurse) Pt. Transferred to [facility] via bed. docume nted in this [...] | | | | | [place] [address] | | | | + + + + + + | RED CELL | 3.25 (L)Comment: Testing | 3.70 - 5.10 | EXTERNAL | | | COUNT | performed at [facility], [address] | M/uL | LAB | | | | [address], | | | | | | [place] [address] | | | | + + + + + + | Hgb | 10.0 (L)Comment: Testing | 11.3 - 15.5 | EXTERNAL | | | | performed at [facility], [address] | g/dL | LAB | | | | [address], | | | | | | [place] [address] | | | | + + + + + + | Hematocrit, | 29.9 (L)Comment: Testing | 34.0 - 46.0 % | EXTERNAL | | | POC | performed at [facility], [address] | | LAB | | | | [address], | | | | | | [place] [address] | | | | + + + + + + | MCV | 92.2Comment: Testing | 80.0 - 100.0 fl | EXTERNAL | | | | performed at [facility], [address] | | LAB | | | | [address], | | | | | | [place] [address] | | | | + + + + + + | MCH | 31.0Comment: Testing | 27.0 - 34.0 pg | EXTERNAL | | | | performed at [facility], [address] | | LAB | | | | [address], | | | | | | [place] [address] | | | | + + + + + + | MCHC | 33.6Comment: Testing | 32.0 - 35.5 | EXTERNAL | | | | performed at [facility], [address] | g/dL | LAB | | | | [address], | | | | | | [place] [address] | | | | + + + + + + | RDW-CV | 44.2Comment: Testing | 37 - 53 fl | EXTERNAL | | | | performed at [facility], [address] | | LAB | | | | [address], | | | | | | [place] [address] | | | | + + + + + + | Platelet | 150Comment: Testing | 150 - 400 K/uL | EXTERNAL | | | Count | performed at [facility], [address] | | LAB | | | Plasma | [address], | | | | | | [place] [address] | | | | + + + + + + | MPV | 11.2Comment: Testing | fl | EXTERNAL | | | | performed at [facility], [address] | | LAB | | | | [address], | | | | | | [place] [address] | | | | + + + + + + | Differentia | MANUALComment: Testing | | EXTERNAL | | | l Type | performed at [facility], [address] | | LAB | | | | [address], | | | | | | [place] [address] | | | | + + + + + + | Segmented | 55Comment: Testing | % | EXTERNAL | | | Neutrophils | performed at [facility], [address] | | LAB | | | Manual | [address], | | | | | | [place] [address] | | | | + + + + + + | % Bands | 1Comment: Testing | % | EXTERNAL | | | | performed at [facility], [address] | | LAB | | | | [address], | | | | | | [place] [address] | | | | + + + + + + | Lymphocytes | 35Comment: Testing | % | EXTERNAL | | | Manual | performed at [facility], [address] | | LAB | | | | [address], | | | | | | [place] [address] | | | | + + + + + + | Monocytes | 7Comment: Testing | % | EXTERNAL | | | Manual | performed at [facility], [address] | | LAB | | | | [address], | | | | | | [place] [address] | | | | + + + + + + | Eosinophils | 2Comment: Testing | % | EXTERNAL | | | Manual | performed at [facility], [address] | | LAB | | | | [address], | | | | | | [place] [address] | | | | + + + + + + | Absolute | 6.2Comment: Testing | 1.9 - 7.4 K/uL | EXTERNAL | | | Neutrophils | performed at [facility], [address] | | LAB | | | | [address], | | | | | | [place] [address] | | | | + + + + + + | Bands | 0.1Comment: Testing | 0 - 0.2 K/uL | EXTERNAL | | | Manual | performed at [facility], [address] | | LAB | | | | [address], | | | | | | [place] [address] | | | | + + + + + + | Absolute | 3.9Comment: Testing | 1.0 - 3.9 K/uL | EXTERNAL | | | Lymphocytes | performed at [facility], [address] | | LAB | | | [address], | | | | | | [place] [address] | | | | + + + + + + | Absolute | 0.8Comment: Testing | 0 - 0.8 K/uL | EXTERNAL | | | Monocytes | performed at [facility], [address] | | LAB | | | | [address], | | | | | | [place] [address] | | | | + + + + + + | Absolute | 0.2Comment: Testing | 0 - 0.5 K/uL | EXTERNAL | | | Eosinophils | performed at [facility], [address] | | LAB | | | | [facility] [address], | | | | | | [place] [address] | | | | + + + + + + | RBC | RBC AND PLT MORPHOLOGY | | EXTERNAL | | | Morphology | APPEAR NORMALComment: | | LAB | | | | Testing performed at | | | | | | [facility], [address] [facility] | | | | | | [place] | | | | | | [address] | | | | + + + [...] EXTERNAL | | | | performed at [facility], [address] | | LAB | | | | [address], | | | | | | [place] [address] | | | | + + + + + + | RED CELL | 3.62 (L)Comment: Testing | 3.70 - 5.10 | EXTERNAL | | | COUNT | performed at [facility], [address] | M/uL | LAB | | | | [address], | | | | | | [place] [address] | | | | + + + + + + | Hgb | 11.1 (L)Comment: Testing | 11.3 - 15.5 | EXTERNAL | | | | performed at [facility], [address] | g/dL | LAB | | | | [address], | | | | | | [place] [address] | | | | + + + + + + | Hematocrit, | 32.8 (L)Comment: Testing | 34.0 - 46.0 % | EXTERNAL | | | POC | performed at [facility], [address] | | LAB | | | | [address], | | | | | | [place] [address] | | | | + + + + + + | MCV | 90.7Comment: Testing | 80.0 - 100.0 fl | EXTERNAL | | | | performed at [facility], [address] | | LAB | | | | [address], | | | | | | [place] [address] | | | | + + + + + + | MCH | 30.7Comment: Testing | 27.0 - 34.0 pg | EXTERNAL | | | | performed at [facility], [address] | | LAB | | | | [address], | | | | | | [place] [address] | | | | + + + + + + | MCHC | 33.9Comment: Testing | 32.0 - 35.5 | EXTERNAL | | | | performed at [facility], [address] | g/dL | LAB | | | | [address], | | | | | | [place] [address] | | | | + + + + + + | RDW-CV | 42.9Comment: Testing | 37 - 53 fl | EXTERNAL | | | | performed at [facility], [address] | | LAB | | | | [address], | | | | | | [place] [address] | | | | + + + + + + | Platelet | 152Comment: Testing | 150 - 400 K/uL | EXTERNAL | | | Count | performed at [facility], [address] | | LAB | | | Plasma | [address], | | | | | | [place] [address] | | | | + + + + + + | MPV | 11.3Comment: Testing | fl | EXTERNAL | | | | performed at [facility], [address] | | LAB | | | | [address], | | | | | | [place] [address] | | | | + + + [...] | | | | | [place] [address] | | | | + + + [...] EXTERNAL | | | | performed at [facility], [address] | | LAB | | | | [address], | | | | | | [place] [address] | | | | + + + [...] EXTERNAL | | | | performed at [facility], [address] | | LAB | | | | [address], | | | | | | [place] [address] | | | | + + + [...] EXTERNAL | | | | performed at [facility], [address] | | LAB | | | | [address], | | | | | | [place] [address] | | | | + + + [...] [place], | | | | | | [place] [address] | | | | + + + [...] | | | preparation was performed by [facility], [facility] | | | [address] [address] (Dental Insurance Biller: | | | Carlos Alberto Roach M.D.; [place]#: [id number]). Diagnostician: Wood Cho | | | King [...] EXTERNAL | | | | performed at [facility] | | LAB | | | | [address];[place] | | | | | | [address] | | | | + + + + + + | RED CELL | 4.46Comment: Testing | 3.70 - 5.10 | EXTERNAL | | | COUNT | performed at [facility];[address] | M/uL | LAB | | | | [address];[place] | | | | | | [address] | | | | + + + + + + | Hgb | 13.8Comment: Testing | 11.3 - 15.5 | EXTERNAL | | | | performed at [facility];[address] | g/dL | LAB | | | | [address];[place] | | | | | | [address] | | | | + + + + + + | Hematocrit, | 40.3Comment: Testing | 34.0 - 46.0 % | EXTERNAL | | | POC | performed at [facility];[address] | | LAB | | | | [address];[place] | | | | | | [address] | | | | + + + + + + | MCV | 90.3Comment: Testing | 80.0 - 100.0 fl | EXTERNAL | | | | performed at [facility];[address] | | LAB | | | | [address];[place] | | | | | | [address] | | | | + + + + + + | MCH | 30.9Comment: Testing | 27.0 - 34.0 pg | EXTERNAL | | | | performed at [facility];[address] | | LAB | | | | [address];[place] | | | | | | [address] | | | | + + + + + + | MCHC | 34.2Comment: Testing | 32.0 - 35.5 | EXTERNAL | | | | performed at [facility];[address] | g/dL | LAB | | | | [address];[place] | | | | | | [address] | | | | + + + + + + | RDW-CV | 42.4Comment: Testing | 37 - 53 fl | EXTERNAL | | | | performed at [facility];[address] | | LAB | | | | [address];[place] | | | | | | [address] | | | | + + + + + + | Platelet | 226Comment: Testing | 150 - 400 K/uL | EXTERNAL | | | Count | performed at [facility];[address] | | LAB | | | Plasma | [address];[place] | | | | | | [address] | | | | + + + + + + | MPV | 10.5Comment: Testing | fl | EXTERNAL | | | | performed at [facility];[address] | | LAB | | | | [address];[place] | | | | | | [address] | | | | + + + [...] EXTERNAL | | | | performed at [facility];[address] | | LAB | | | | [address];[place] | | | | | | [address] | | | | + + + [...] EXTERNAL | | | | performed at [facility];[address] | | LAB | | | | [address];[place], [place] | | | | | | [address] | | | | + + + [...] EXTERNAL | | | | performed at [facility];[address] | | LAB | | | | [address];[place] | | | | | | [address] | | | | + + + [...] | | | | | performed at [facility] | | | | | | [address] [facility];[place], [place] | | | | | | [address] | | | | + + + [...] EXTERNAL | | | | performed at [facility];[address] | | LAB | | | | [address];[place] | | | | | | [address] | | | | + + + [...] EXTERNAL | | | | performed at [facility];[address] | mg/dL | LAB | | | | [address];[place], [place] | | | | | | [address] | | | | + + + [...]
--- OUTSIDE RECORDS SUMMARY | ~2019-09-13 | XMS | Clinical Summary ---
Demographics + + + | Address | [address] | | | [place] [address] | + + + | Home Phone | | + + + | Preferred Language | Unknown | + + + | Marital Status | Single | + + + | Spiritism Affiliation | 1013 | + + + | Race | Unknown | + + + | Ethnic Group | Unknown | + + + Author + + + | Author | [facility] | | | and [place] | + + + | Organization | [facility] | | | and [place] [...] Team Providers + +------+ + | Care Pickling Machine Operator Name | Role | Phone | + +------+ + PCP | Unavailable | + +------+ + Allergies Not on File Medications Not on file Active Problems Not on file Social History + +-------+ +--------+------+ | Tobacco [...] recent travel history available. | + + Last Filed Vital Signs Not on file Plan of Treatment + + + + + | Health Maintenance | Due Date | Last Done | Comments | + + + + + | Vaccine: HPV (1 - | | | | | Female 3-dose | 8 | | | | series) | | | | + + + + + | Vaccine: | | | | | Dtap/Tdap/Td (1 - | 2 | | | | Tdap) | | | | + + + + + | Cervical Cancer | | | | | Screening (Pap) | 4 | | | + + + + + | Vaccine: Influenza | | | | | (#1) | 9 | | | + + + + + Results Not on filefrom Last 3 Months"
--- OUTSIDE RECORDS SUMMARY | ~2019-09-13 | XMS | Clinical Summary ---
Demographics + + + | Address | [address] | | | [place] [address] | + + + | Home Phone | | + + + | Preferred Language | Unknown | + + + | Marital Status | Single | + + + | Druze Affiliation | 1013 | + + + | Race | Unknown | + + + | Ethnic Group | Unknown | + + + Author + + + | Author | [facility] | | | and [place] | + + + | Organization | [facility] | | | and [place] | [...] Team Providers + +------+ + | Care Product Line Manager Name | Role | Phone | + [...]
[~2019-09-13 22:09] MED LIST: PRENATAL FORMU1 EAC2 PO
[2019-09-14] MEDS ORDERED: OMEPRAZOLE20 MG PO (01:17)
== END 2019-09-14 01:31 | disposition home or self-care (01) ==
LOC: ED 22:09
DX: K30 Functional dyspepsia (principal)
CPT/HCPCS: 76705; 80053; 81001; 83690; 84703; 85025; 99284-25

== ENCOUNTER 2025-03-31 20:24 | Emergency (ER) | payer OTHER ==
[~2025-03-31] VITALS: Ht 172.7 cm; Wt 78.0 kg
[~2025-03-31 20:24] MED LIST changes: +OMEPRAZOLE20 MG PO
[2025-03-31] MEDS ORDERED: KETOROLAC TROMETHAMINE 60 MG/2 ML VIAL IM ONE (20:45)
[2025-03-31] MEDS ORDERED: TETRACAINE HCL 0.5% 4 ML BTL OD ONE (20:45)
[2025-03-31] MEDS ORDERED: MAXITROL EYE DRO5 ML OPTH (21:41)
[2025-03-31] MEDS ORDERED: HYDROCODONE BIT/ACETAMINOPHEN 5/325 MG 1 TAB HOME.PACK PO ONE (21:45)
[2025-03-31] MEDS ORDERED: NEOMYCIN/POLYMYXIN/DEXAMETH OPTH SUSPENSION BOTTLE OD ONE (21:45)
[2025-03-31 22:03] VITALS: BP 108/62
== END 2025-03-31 22:05 | disposition home or self-care (01) ==
LOC: ED 20:24
DX: H18.821 Corneal disorder due to contact lens, right eye (principal); Z79.899 Other long term (current) drug therapy
CPT/HCPCS: 96372; 99283; A9270; J1885